=== PATIENT | female | born 1930 | race African-American/Black ===

== ENCOUNTER 2016-06-07 16:44 | Observation (INO) | payer MEDICARE, OTHER ==
[2016-06-07 17:21] LABS: ABSOLUTE BASOPHILS # (AUTO) 0.1 10^3/uL (0.0-0.2); ABSOLUTE EOSINOPHILS # (AUTO) 0.2 10^3/uL (0.0-0.6); ABSOLUTE LYMPHOCYTES (AUTO) 2.6 10^3/uL (0.5-4.7); ABSOLUTE MONOCYTES (AUTO) 0.7 10^3/uL (0.1-1.4); ABSOLUTE NEUT (AUTO) 4.2 10^3/uL (1.7-8.2); BASOPHILS % (AUTO) 0.9 % (0-2); EOSINOPHILS % (AUTO) 2.6 % (0-6); HEMATOCRIT 34.6 % (36.0-47.0); HEMOGLOBIN 11.7 g/dL (12.0-15.5); HGB HCT DIFFERENCE 0.5; LYMPHOCYTES % (AUTO) 33.2 % (13-45); MEAN CORPUSCULAR HEMOGLOBIN 29.8 pg (27.0-33.4); MEAN CORPUSCULAR HGB CONC 33.9 g/dL (32.0-36.0); MEAN CORPUSCULAR VOLUME 88 fl (80-97); MONOCYTES % (AUTO) 8.5 % (3-13); RED BLOOD COUNT 3.93 10^6/uL (3.72-5.28); RED CELL DISTRIBUTION WIDTH 14.6 % (11.5-14.0); SEGMENTED NEUTROPHILS % (AUTO) 54.8 % (42-78); WHITE BLOOD COUNT 7.7 10^3/uL (4.0-10.5)
--- NOTE | 2016-06-07 17:38 | ER Document Report ---
ED Cardiac - General Chief Complaint: Chest Pain Stated Complaint: BACK PAIN Mode of Arrival: Medic Information source: Patient, Emergency Med Personnel Cannot obtain history due to: Dementia - MILD TRAVEL OUTSIDE OF THE [place] IN LAST 30 DAYS: No - HPI Patient complains to provider of: Chest pain Use of: denies: Alcohol, Amphetamines, Bath salts, Caffeine, Cocaine, Decongestants Was the onset of pain: Sudden When did pain begin: YESTERDAY ?? Is the pain a: New problem Chest pain location: Substernal Quality of pain: Other - UNABLE TO DESCRIBE Chest pain radiation location: None Severity now: None Severity at worst: Mild Chest pain precipitating factors: DOESN'T REMEMBER CIRCUMSTANCES @ TIME OF ONSET Cardiac risk factors: Hypertension. denies: Diabetes, Smoker, + Family history , Dyslipidemia, Hx CHF, Hx [place] Positive cardiac history: No Associated symptoms: None Exacerbated by: Denies Relieved by: Nothing Similar symptoms previously: No Recently seen / treated by doctor: No - Related Data Allergies/Adverse Reactions: aspirin Allergy (Verified 06/07/16 17:17) Penicillins Allergy (Verified 06/07/16 17:17) Past Medical History - General Information source: Patient - Social History Smoking Status: Never Smoker Chew tobacco use (# tins/day): No Frequency of alcohol use: None Drug Abuse: None Lives with: Retirement - [facility]. [facility] Family History: None Patient has suicidal ideation: No Patient has homicidal ideation: No - Past Medical History Cardiac Medical History: Reports: Hx Hypertension Pulmonary Medical History: Reports: None EENT Medical History: Reports: None Neurological Medical History: Reports: None Endocrine Medical History: Reports: Hx Diabetes Mellitus Type 2 Renal/ Medical History: Reports: None Malignancy Medical History: Reports: None GI Medical History: Reports: None Musculoskeltal Medical History: Reports None Psychiatric Medical History: Reports: Hx Dementia Surgical Hx: Negative Review of Systems - Review of Systems Constitutional: No symptoms reported EENT: No symptoms reported Cardiovascular: See HPI Respiratory: No symptoms reported Gastrointestinal: No symptoms reported Genitourinary: No symptoms reported Female Genitourinary: Post menopausal Skin: No symptoms reported Neurological/Psychological: No symptoms reported Physical Exam - Vital signs Vitals: Pulse Ox 99 06/07/16 17:15 - General General appearance: Appears well, Alert In distress: None - HEENT Head: Normocephalic Eyes: Normal Conjunctiva: Normal Ears: Normal Nasal: Normal Mouth/Lips: Normal Mucous membranes: Normal Pharynx: Normal - Respiratory Respiratory status: No respiratory distress Chest status: Nontender Breath sounds: Normal - Cardiovascular Rhythm: Regular Heart sounds: Normal auscultation Murmur: No - Abdominal Inspection: Normal Distension: No distension Bowel sounds: Normal - Back Back: Normal - Extremities General upper extremity: Normal inspection General lower extremity: Normal inspection. No: Tender, Edema - Neurological Neuro grossly intact: Yes Cognition: Normal Orientation: AAOx4 - Psychological Associated symptoms: Normal affect, Normal mood - Skin Skin Temperature: Warm Skin Moisture: Dry Skin Color: Normal Skin Turgor: Elastic Course - Re-evaluation Re-evalutation: 06/07/16 19:36 Patient denies any further chest pain. Does complain of a mild headache. Results of evaluation to date discussed with patient. Disposition will be decided after results of repeat EKG and troponin are reported. - Vital Signs Vital signs: Temp Pulse Resp BP Pulse Ox 15 99 06/07/16 18:08 06/07/16 18:08 - Laboratory Result Diagrams: 06/07/16 17:15 06/07/16 17:15 Laboratory results interpreted by me: 06/07/16 06/07/16 17:15 17:15 Hgb 11.7 L Hct 34.6 L RDW 14.6 H Est GFR (Non-Af Amer) 53 L Glucose 160 H Calcium 10.4 H - Diagnostic Test Radiology reviewed: Image reviewed, Reports reviewed - EKG Interpretation by Nm EKG shows normal: Sinus rhythm, [place], Intervals, QRS Complexes, ST-T Waves Rate: Normal Rhythm: NSR P Waves: LAE - Consults DR. SRINIVASAN Time consulted: 20:45 Consulted provider: will come to ER Discharge - Discharge Clinical Impression: Essential hypertension Chest pain Qualifiers: Chest pain type: unspecified Qualified Code(s): R07.9 - Chest pain, unspecified Condition: Good Disposition: ADMITTED OBSERVATION Admitting Provider: Hospitalist Unit Admitted: Telemetry
[2016-06-07 17:46] LABS: ALANINE AMINOTRANSFERASE 30 U/L (9-52); ALBUMIN 4.4 g/dL (3.5-5.0); ALKALINE PHOSPHATASE 80 U/L (38-126); ANION GAP 11 (5-19); ASPARTATE AMINO TRANSFERASE 34 U/L (14-36); BILIRUBIN,DIRECT 0.4 mg/dL (0.0-0.4); BILIRUBIN,TOTAL 0.7 mg/dL (0.2-1.3); BLOOD UREA NITROGEN 20 mg/dL (7-20); CALCIUM 10.4 mg/dL (8.4-10.2); CARBON DIOXIDE 29 mmol/L (22-30); CHLORIDE 100 mmol/L (98-107); CREATINE KINASE 105 U/L (30-135); GLUCOSE 160 mg/dL (75-110); POTASSIUM 4.6 mmol/L (3.6-5.0); SODIUM 140.2 mmol/L (137-145); TOTAL PROTEIN 8.1 g/dL (6.3-8.2)
[2016-06-07 17:58] LABS: CREATINE KINASE MB 1.14 ng/mL (<4.55)
[2016-06-07 17:59] LABS: TROPONIN I < 0.012 ng/mL
[2016-06-07] MEDS ORDERED: ACETAMINOPHEN 325 MG TABLET PO ONE (19:37)
--- NOTE | 2016-06-07 19:38 | EKG REPORT ---
SEVERITY:- BORDERLINE ECG - SINUS RHYTHM PROBABLE LEFT ATRIAL ABNORMALITY : Confirmed by: Lizbeth Cage MD 07-Jun-2016 19:37:27
[2016-06-07] MEDS ORDERED: NITROGLYCERIN 2% OINTMENT 1 GM PACKET TP ONE (20:13)
[2016-06-07] MEDS ORDERED: DEXTROSE 40% GEL 15 GM TUBE PO PRN ×2 (23:21)
[2016-06-07] MEDS ORDERED: GLUCAGON,HUMAN RECOMB 1 MG INJ IM PRN (23:21)
[2016-06-07] MEDS ORDERED: DEXTROSE 50%-WATER 25 GM/50 ML DISP.SYRIN IV PRN ×2 (23:21)
[2016-06-07] MEDS ORDERED: ENALAPRILAT DIHYDRATE INJ/PF 1.25 MG/1 ML SDV IV PRN (23:23)
[2016-06-07] MEDS ORDERED: ACETAMINOPHEN 325 MG TABLET PO PRN (23:24)
--- NOTE | 2016-06-07 23:44 | PDOC H&P ---
History of Present Illness Admission Date/PCP: 06/07/16 20:[address] Stevenson [facility] Patient complains of: chest pain History of Present Illness: AIDEN CULP is a 85 year old -[place] female with underlying hypertension, type II diabetes mellitus, and dementia, who presents to the emergency room for evaluation of above complaint. Patient has been discussed with emergency room physician who evaluated the patient. Patient herself is somewhat disoriented, thinking she was back at [facility], and uncertain of the year. When asked why she was in the hospital, she stated "my side was hurting." Denies any pain at the present time. Really could not describe the pain, or any exacerbating factors. Please see notes by emergency room physician also, which are reviewed. No associated nausea vomiting, fever or chills, diarrhea or dysuria. Negative cardiac history other than hypertension, with no previous myocardial infarction, congestive heart failure, pulmonary embolus, or DVT.. Laboratory results are listed in [employer] and are reviewed. No old labs available for comparison. X-ray summary results are listed below, with full report(s) reviewed. . EKG's reviewed. No old EKG available for comparison. Social history/personal habits: She is a . Currently resides at [facility]. 3 Children; one ; could not remember why her child . No use of tobacco alcohol or illicit drugs. Allergies/adverse reactions are listed in [employer] and are reviewed. Home medications Home medications initially autopopulated into [employer] may not accurately reflect patient's true medications, dosages, and/or frequencies. 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 Unfortunately, patient uncertain of medications/dosages/frequencies. REVIEW OF SYSTEMS: Constitutional: No fever or chills. Eyes: Wears glasses. ENT: No swallowing problems or complaints. No hearing problems or complaints. Pulmonary: No current complaints. Cardiovascular: See history and present illness. Gastrointestinal: No current complaints, including nausea or vomiting. Skin: No current complaints, including rashes. Hematologic: Easy bruising. Neurologic: No current complaints, including numbness or tingling. Musculoskeletal: No current complaints, including painful joints. Psychiatric: No current complaints, including anxiety or depression. Endocrine: No current complaints, including polyuria. Genitourinary: No current complaints, including dysuria. PHYSICAL EXAMINATION: Neither height nor weight are recorded on the chart. Blood pressure 161/84. Pulse 76 and regular. 99% saturation on room air. Respirations are 15 and unlabored. Temperature not recorded on the chart; skin feels normothermic. Skin is warm and dry. No grossly obvious evidence of rash in areas of skin examined. No subcutaneous nodules palpated. ENT: Hearing grossly normal to normal conversation. Tongue midline on protrusion pink and slightly moist. Eyes: No scleral icterus. Pupils reactive to light; right pupil 4 mm; Left pupil 3 mm. [place] conjunctivae. Neck is supple and nontender to gentle active range of motion and palpation. Midline trachea. No palpable thyroid nodule mass enlargement or tenderness. Lymphatic: No palpable cervical or clavicular nodes. Neck and lymphatic exams limited by patient body habitus. Psychiatric: Disoriented. See history and present illness. Lungs: Auscultation reveals clear and equal breath sounds bilaterally. No use of accessory respiratory muscles. Cardiovascular: Heart regular rate and rhythm, without gallop murmur or rub. No carotid or abdominal aortic bruits. No ankle or pedal edema. palpable dorsalis pedis pulses. Abdomen: soft, slightly distended nontender with positive bowel sounds. Unable to adequately evaluate abdomen for masses or organomegaly due to distention. Compression of either her upper abdomen nor sternum reproduces her previously noted chest pain. Extremities: Feet are warm and dry. No calf tenderness to compression. No grossly obvious visual evidence of calf swelling. Gentle manipulation of lower extremities fails to reveal any obvious evidence of injury or instability to knees hips or ankles. Neurologic: Moves upper extremities grossly normally. Patellar reflexes absent. Absent Babinski. Light touch is intact at feet. Dorsiflexion and plantarflexion of feet 5 / 5 and symmetric. Past Medical History Cardiac Medical History: Reports: Hypertension Denies: Congestive Heart Failure, DVT, Myocardial Infarction, Hyperlipidema, Pulmonary Embolism Pulmonary Medical History: Reports: None Denies: Asthma, Chronic Obstructive Pulmonary Disease (COPD) EENT Medical History: Reports: Eyes - Wears glasses Denies: Ears, Throat Neurological Medical History: Denies: Hemorrhagic CVA, Ischemic CVA, Seizures Endocrine Medical History: Reports: Diabetes Mellitus Type 2 Denies: Diabetes Mellitus Type 1, Hyperthyroidism, Hypothyroidism Renal/ Medical History: Reports: None Malignancy Medical History: Reports: None GI Medical History: Denies: Cirrhosis, Gastroesophageal Reflux Disease, Hepatitis, Peptic Ulcer Disease Musculoskeltal Medical History: Denies: Arthritis Skin Medical History: Reports: None Psychiatric Medical History: Reports: Dementia Denies: Alcohol Dependency, Depression, General Anxiety Disorder, Substance Abuse, Tobacco Dependency Hematology: Reports: Other - Easy bruising Infectious Medical History: Denies: Hepatitis B, Hepatitis C Past Surgical History Past Surgical History: Reports: None Social History Information Source: Patient, Emergency Med Personnel, [facility] Records Lives with: Detention - [facility]. [facility] Smoking Status: Never Smoker Frequency of Alcohol Use: None Drugs: None - Advance Directive Resuscitation Status: Full Code Surrogate healthcare decision maker:: Her son Family History Family History: None Parental Family History Reviewed: Yes Children Family History Reviewed: Yes Sibling(s) Family History Reviewed.: Yes Medication/Allergy Home Medications: Albiglutide [Tanzeum] 1 applic SUBCUT QAM 06/07/16 Calcium Citrate/Vitamin D3 [[place] Calcium-Vit D 200-250 Tablet] 2 tab PO QAM Esomeprazole Magnesium [Nexium] 1 tab PO DAILY 06/07/16 Insulin Glargine,Hum.rec.anlog [Lantus Insulin 100 Unit/mL] 15 unit SUBCUT QHS 06/07/16 Loratadine [Loratadine] 1 tab PO QAM 06/07/16 Meclizine HCl 12.5 mg PO TID 06/07/16 Melatonin 3 mg PO QHS 06/07/16 Multivitamin [Multivitamins] 1 tab PO DAILY 06/07/16 Simethicone 1 tab PO TID 06/07/16 Telmisartan [Micardis 20 mg Tablet] 1 tab PO QAM 06/07/16 Donepezil HCl [Aricept 5 mg Tablet] 2 tab PO QHS 06/08/16 Allergies/Adverse Reactions: aspirin Allergy (Verified 06/07/16 17:17) Penicillins Allergy (Verified 06/07/16 17:17) Physical Exam Vital Signs: Temp Pulse Resp BP Pulse Ox 19 143/115 H 99 06/07/16 22:17 06/07/16 22:17 06/07/16 22:17 Results Impressions: Chest X-Ray 06/07/16 16:46 IMPRESSION: NO ACUTE RADIOGRAPHIC FINDING IN THE CHEST. Assessment & Plan - Diagnosis (1) Anemia Qualifiers: Anemia type: unspecified type Qualified Code(s): D64.9 - Anemia, unspecified Is this a current diagnosis for this admission?: YesPlan: No old labs available for comparison. Follow-up CBC with differential. No need for transfusion at present time. (2) Chest pain Qualifiers: Chest pain type: unspecified Qualified Code(s): R07.9 - Chest pain, unspecified Is this a current diagnosis for this admission?: YesPlan: Patient will be placed in observation bed under chest pain protocol. Patient understands to notify staff should chest pain recur. Serial troponin's . Repeat EKG. lipid panel. I have strongly encouraged patient not to get out of bed without notifying staff , to avoid a fall with injury. Knee high SCDs for DVT prophylaxis. Along with subcutaneous Lovenox . Impression and plans were discussed with patient, who concurs. Time spent in evaluation and management of patient: 59 minutes. (3) Dementia Qualifiers: Dementia type: unspecified type Dementia behavioral disturbance: without behavioral disturbance Qualified Code(s): F03.90 - Unspecified dementia without behavioral disturbance Is this a current diagnosis for this admission?: Yes (4) Diabetes mellitus type 2 in nonobese Is this a current diagnosis for this admission?: YesPlan: Diabetic cardiac diet. Accu-Cheks with appropriate sliding scale coverage.Resume home medications as appropriate once these have been determined and reviewed. (5) Essential hypertension Is this a current diagnosis for this admission?: YesPlan: Resume home medications as appropriate once these have been determined and reviewed.
[2016-06-08] MEDS: INSULIN LISPRO 100 UNIT/ML 3 ML VIAL SUBCUT PRN ×2 (06:00→06:07)
--- NOTE | 2016-06-08 08:31 | EKG REPORT ---
SEVERITY:- BORDERLINE ECG - SINUS RHYTHM PROBABLE LEFT ATRIAL ABNORMALITY : Confirmed by: Lizbeth Cage MD 08-Jun-2016 08:31:14
--- NOTE | 2016-06-08 08:31 | EKG REPORT ---
SEVERITY:- BORDERLINE ECG - SINUS RHYTHM BORDERLINE T ABNORMALITIES, INFERIOR LEADS : Confirmed by: Lizbeth Cage MD 08-Jun-2016 08:31:10
[2016-06-08] MEDS ORDERED: NORMAL SALINE 1000 ML 1,000 ML IV PRN (08:35)
[2016-06-08 09:20] LABS: ABSOLUTE BASOPHILS # (AUTO) 0.1 10^3/uL (0.0-0.2); ABSOLUTE EOSINOPHILS # (AUTO) 0.1 10^3/uL (0.0-0.6); ABSOLUTE MONOCYTES (AUTO) 0.7 10^3/uL (0.1-1.4); ABSOLUTE NEUT (AUTO) 8.4 10^3/uL (1.7-8.2); BASOPHILS % (AUTO) 0.6 % (0-2); EOSINOPHILS % (AUTO) 1.3 % (0-6); HEMATOCRIT 34.8 % (36.0-47.0); HEMOGLOBIN 11.6 g/dL (12.0-15.5); LYMPHOCYTES % (AUTO) 17.9 % (13-45); MEAN CORPUSCULAR HEMOGLOBIN 29.2 pg (27.0-33.4); MEAN CORPUSCULAR HGB CONC 33.3 g/dL (32.0-36.0); MEAN CORPUSCULAR VOLUME 88 fl (80-97); MONOCYTES % (AUTO) 6.5 % (3-13); RED BLOOD COUNT 3.97 10^6/uL (3.72-5.28); RED CELL DISTRIBUTION WIDTH 14.8 % (11.5-14.0); SEGMENTED NEUTROPHILS % (AUTO) 73.7 % (42-78); WHITE BLOOD COUNT 11.4 10^3/uL (4.0-10.5)
[2016-06-08 09:38] LABS: Direct HDL 84 mg/dL (>40); TRIGLYCERIDES 85 mg/dL (<150)
[2016-06-08 09:48] LABS: DIRECT LDL 127 mg/dL (<100)
[2016-06-08] MEDS: ENOXAPARIN SODIUM INJ 40 MG/0.4 ML DISP.SYRIN SUBCUT SCH (10:00)
[2016-06-08] MEDS ORDERED: VALSARTAN 80 MG TABLET PO ONE (11:30)
[2016-06-08] MEDS ORDERED: METOPROLOL TARTRATE 25 MG TABLET PO ONE (11:30)
[2016-06-08] MEDS ORDERED: CLOPIDOGREL BISULFATE 75 MG TABLET PO ONE (11:30)
[2016-06-08] MEDS ORDERED: CARBOXYMETHYLCELLULOSE SODIUM OU PRN (15:59)
[2016-06-08] MEDS ORDERED: ALBUTEROL SULFATE HFA (90 MCG/PUFF) 8 GM MDI (1 MDI/ER DISP) IH PRN (15:59)
[2016-06-08] MEDS ORDERED: FLUTICASONE NASAL SPRAY 50 MCG/SPRY 120 SPRAY/16 GM NASL PRN (15:59)
[2016-06-08] MEDS ORDERED: SIMETHICONE 80 MG TAB.CHEW PO PRN (15:59)
--- NOTE | 2016-06-08 15:59 | PDOC PROGRESS REPORT ---
Subjective Progress Note for:: 06/08/16 Subjective:: Patient slightly restless. Wanders around. Reportedly the patient pulled lines and intravenous fluids out. No reported respiratory distress, temperature spikes, nausea vomiting or diaphoresis. Patient denies having any chest pain, nor states that she came with chest pain. She however has dementia. Physical Exam Vital Signs: Temp Pulse Resp BP Pulse Ox 97.5 F 71 18 154/69 H 98 06/08/16 14:20 06/08/16 15:31 06/08/16 15:31 06/08/16 15:31 06/08/16 15:31 Intake & Output 06/07/16 06/08/16 06/09/16 06:59 06:59 06:59 Weight 54.431 kg General appearance: PRESENT: no acute distress Head exam: PRESENT: normocephalic Eye exam: PRESENT: EOMI Mouth exam: PRESENT: moist, neck supple Neck exam: ABSENT: JVD Respiratory exam: PRESENT: clear to auscultation phillip. ABSENT: rhonchi, wheezes Cardiovascular exam: PRESENT: RRR. ABSENT: gallop GI/Abdominal exam: PRESENT: normal bowel sounds, soft. ABSENT: distended, tenderness Extremities exam: ABSENT: pedal edema Neurological exam: PRESENT: alert, awake Psychiatric exam: ABSENT: agitated Focused psych exam: PRESENT: restlessness - Slightly Skin exam: PRESENT: dry, warm. ABSENT: cyanosis Results Laboratory Results: 06/08/16 08:46 06/08/16 06/08/16 06/08/16 08:46 08:46 12:49 WBC 11.4 H RBC 3.97 Hgb 11.6 L Hct 34.8 L MCV 88 MCH 29.2 MCHC 33.3 RDW 14.8 H Plt Count 213 Seg Neutrophils % 73.7 Lymphocytes % 17.9 Monocytes % 6.5 Eosinophils % 1.3 Basophils % 0.6 Absolute Neutrophils 8.4 H Absolute Lymphocytes 2.0 Absolute Monocytes 0.7 Absolute Eosinophils 0.1 Absolute Basophils 0.1 Calcium 10.7 H Triglycerides 85 Cholesterol 259.80 H LDL Cholesterol Direct 127 H VLDL Cholesterol 17.0 HDL Cholesterol 84 06/08/16 06/08/16 02:33 08:46 Troponin I < 0.012 < 0.012 Impressions: Chest X-Ray 06/07/16 16:46 IMPRESSION: NO ACUTE RADIOGRAPHIC FINDING IN THE CHEST. Assessment & Plan - Diagnosis (1) Chest pain Qualifiers: Chest pain type: unspecified Qualified Code(s): R07.9 - Chest pain, unspecified Is this a current diagnosis for this admission?: Yes (2) Dementia Qualifiers: Dementia type: unspecified type Dementia behavioral disturbance: without behavioral disturbance Qualified Code(s): F03.90 - Unspecified dementia without behavioral disturbance Is this a current diagnosis for this admission?: Yes (3) Diabetes mellitus type 2 in nonobese Is this a current diagnosis for this admission?: Yes (4) Hypercalcemia Is this a current diagnosis for this admission?: Yes (5) Essential hypertension Is this a current diagnosis for this admission?: Yes (6) GERD (gastroesophageal reflux disease) Qualifiers: Esophagitis presence: without esophagitis Qualified Code(s): K21.9 - Gastro-esophageal reflux disease without esophagitis Is this a current diagnosis for this admission?: Yes - Time Time Spent with patient: 25-34 minutes - Plan Summary Plan Summary: We will check a urinalysis. Begin hydration for hypercalcemia. Recheck calcium in the morning. Begin antiplatelet therapy with Plavix. Resume home medications and antihypertensive medications. We'll put one-to-one sitter.
[2016-06-08] MEDS ORDERED: CARBOXYMETHYLCELLULOSE SOD 0.5% 0.4 ML DROPERETTE OU PRN (16:13)
[2016-06-08] MEDS ORDERED: ALBUTEROL SULFATE HFA (90 MCG/PUFF) 200 PUFF/8.5 GM MDI IH PRN (16:25)
[2016-06-08 21:14] LABS: APPEARANCE,URINE CLEAR; BILIRUBIN,URINE NEGATIVE (NEGATIVE); GLUCOSE, URINE 150 mg/dL (NEGATIVE); KETONES,URINE NEGATIVE (NEGATIVE); LEUKOCYTE ESTERASE,URINE NEGATIVE (NEGATIVE); NITRITE,URINE NEGATIVE (NEGATIVE); PROTEIN,URINE NEGATIVE (NEGATIVE); URINE SPECIFIC GRAVITY 1.017; UROBILINOGEN,URINE NEGATIVE mg/dL (<2.0)
[2016-06-08] MEDS: METOPROLOL TARTRATE 25 MG TABLET PO SCH (21:43)
[2016-06-08] MEDS: LANSOPRAZOLE 30 MG TAB.RAP.DR PO SCH (21:43)
[2016-06-08] MEDS ORDERED: DONEPEZIL HCL 5 MG TABLET PO SCH ×2 (22:00)
[2016-06-08] MEDS ORDERED: INSULIN GLARGINE,HUM.REC.ANLOG 300 UNIT/3 ML INSULN.PEN SUBCUT SCH (22:00)
[2016-06-08] MEDS ORDERED: (PENDING PHARMACY ID) (Melatonin/Pyridoxine [Melatonin 3 Mg Tablet] 1 EACH) PO SCH (22:00)
[2016-06-09] MEDS: LANSOPRAZOLE 30 MG TAB.RAP.DR PO SCH (05:24)
[2016-06-09 06:32] LABS: ANION GAP 12 (5-19); BLOOD UREA NITROGEN 24 mg/dL (7-20); CALCIUM 9.9 mg/dL (8.4-10.2); CARBON DIOXIDE 25 mmol/L (22-30); CHLORIDE 101 mmol/L (98-107); CREATININE RESULT 1.02 mg/dL (0.52-1.25); GLUCOSE 162 mg/dL (75-110); POTASSIUM 4.2 mmol/L (3.6-5.0); SODIUM 137.8 mmol/L (137-145)
[2016-06-09] MEDS: INSULIN LISPRO 100 UNIT/ML 3 ML VIAL SUBCUT PRN ×2 (09:25→14:07)
[2016-06-09] MEDS: ENOXAPARIN SODIUM INJ 40 MG/0.4 ML DISP.SYRIN SUBCUT SCH (09:25)
[2016-06-09] MEDS: METOPROLOL TARTRATE 25 MG TABLET PO SCH (09:25)
[2016-06-09] MEDS ORDERED: LOSARTAN POTASSIUM 25 MG TABLET PO SCH ×2 (10:00)
[2016-06-09] MEDS ORDERED: CLOPIDOGREL BISULFATE 75 MG TABLET PO SCH (10:00)
[2016-06-09] MEDS ORDERED: VALSARTAN 80 MG TABLET PO SCH (10:00)
[2016-06-09] MEDS ORDERED: (PENDING PHARMACY ID) (Telmisartan [Micardis 20 Mg Tablet] 20 MG) PO SCH (10:00)
--- NOTE | 2016-06-09 11:12 | PDOC DISCHARGE SUMMARY ---
General - Admit/Disc Date/PCP Admission Date/Primary Care Provider: 06/07/16 23:23 Discharge Date: 06/09/16 - Discharge Diagnosis (1) Chest pain Is this a current diagnosis for this admission?: Yes (2) Dementia Is this a current diagnosis for this admission?: Yes (3) Diabetes mellitus type 2 in nonobese Is this a current diagnosis for this admission?: Yes (4) Hypercalcemia Is this a current diagnosis for this admission?: Yes (5) Dehydration Is this a current diagnosis for this admission?: Yes (6) Essential hypertension Is this a current diagnosis for this admission?: Yes (7) GERD (gastroesophageal reflux disease) Is this a current diagnosis for this admission?: Yes - Additional Information Resuscitation Status: Full Code Discharge Diet: Cardiac - low-fat low-salt Discharge Activity: Activity As Tolerated, Balance Activity w/Rest Home Medications: Acetaminophen [Tylenol 325 mg Tablet] 650 mg PO Q6HP PRN 06/08/16 Albiglutide [Tanzeum] 30 mg SQ FR@1000 06/08/16 Albuterol Sulfate [Ventolin Hfa] 2 puff IH Q4HP PRN 06/08/16 Carboxymethylcellulose Sodium [Refresh Tears] 1 drp OU Q4HP PRN 06/08/16 Donepezil HCl [Aricept] 10 mg PO QHS 06/08/16 Esomeprazole Magnesium [Nexium] 20 mg PO DAILY@0630 06/08/16 Fluticasone Propionate [Flonase Nasal [place] 50 Mcg/[place] 16 gm] 1 spray NASL DAILYP PRN 06/08/16 Insulin Glargine,Hum.rec.anlog [Lantus Solostar] 15 unit SQ QHS 06/08/16 Loratadine [Claritin 10 mg Tablet] 10 mg PO DAILY 06/08/16 Meclizine HCl [Antivert 12.5 mg Tablet] 12.5 mg PO TIDP PRN MDD 3 06/08/16 Melatonin/Pyridoxine [Melatonin 3 mg Tablet] 1 each PO QHS 06/08/16 Multivitamin [Tab-A-Dao] 1 each PO DAILY 06/08/16 Mv-Mn/FA/Vit K/Lycop/Lut/Zeaxa [Ocuvite Eye + Multi Tablet] 1 each PO DAILY Nitroglycerin [Nitrostat 0.4 mg (1/150 Gr) Tabs 25/Bottle] 1 tab SL Q5MP PRN Polysorbate 80/Glycerin [Refresh Dry Eye Therapy Drops] 1 drop BTH_EYE Q4HP PRN 06/08/16 Simethicone [Mylicon 80 mg Chewable Tablet] 80 mg PO TIDP PRN 06/08/16 Telmisartan [Micardis 20 mg Tablet] 20 mg PO DAILY 06/08/16 Clopidogrel Bisulfate [Plavix 75 mg Tablet] 75 mg PO DAILY tablet 06/09/16 Metoprolol Tartrate [Lopressor 25 mg Tablet] 25 mg PO Q12 tablet 06/09/16 History of Present Illness Patient complains of: Chest pain History of Present Illness: AIDEN CULP is a 85 year old female, with history of dementia, hypertension and diabetes mellitus, presents to the hospital because of chest pain. However information is unclear, on the history, reportedly patient stated my side was hurting. Patient is unable to elaborate the discomfort as reported. Patient was referred for observation for chest pain rule out [place]. For details please refer to history and physical examination performed by the admitting physician. Hospital Course Hospital Course: The patient was admitted to observation. Patient was begun on antiplatelet therapy as well as beta laura. Antihypertensive medications were continued. Serial cardiac enzymes were obtained and they were negative for myocardial infarction. The patient was noted with mild hypercalcemia probably from dehydration and with normal saline infusion hypercalcemia normalized. Her supplemental calcium was discontinued . The patient improved. Her discomfort resolved. Patient however exhibit some restlessness, pulling out her intravenous lines and monitor. Patient unlikely to cooperate with stress test, therefore will be treated medically as stated with beta laura and antiplatelet therapy with Plavix. The rest of the hospital stay is unremarkable. Physical Exam Vital Signs: Temp Pulse Resp BP Pulse Ox 98.0 F 59 L 14 132/44 H 100 06/09/16 07:00 06/09/16 07:00 06/09/16 07:00 06/09/16 07:00 06/09/16 07:00 Intake & Output 06/08/16 06/09/16 06/10/16 06:59 06:59 06:59 Intake Total 175 Output Total 90 Balance 85 Weight 54.431 kg General appearance: PRESENT: no acute distress Head exam: PRESENT: normocephalic Eye exam: PRESENT: EOMI, PERRLA Mouth exam: PRESENT: moist, neck supple Neck exam: ABSENT: JVD Respiratory exam: PRESENT: clear to auscultation phillip, unlabored Cardiovascular exam: PRESENT: RRR. ABSENT: gallop GI/Abdominal exam: PRESENT: soft. ABSENT: distended, guarding, tenderness Extremities exam: ABSENT: pedal edema Neurological exam: PRESENT: alert, awake Skin exam: PRESENT: dry, warm. ABSENT: cyanosis Results Laboratory Results: 06/08/16 08:46 06/09/16 05:08 06/08/16 06/08/16 06/09/16 12:49 20:45 05:08 Sodium 137.8 Potassium 4.2 Chloride 101 Carbon Dioxide 25 Anion Gap 12 BUN 24 H Creatinine 1.02 Est GFR ( Amer) > 60 Est GFR (Non-Af Amer) 51 L Glucose 162 H Calcium 10.7 H 9.9 Urine Color YELLOW Urine Appearance CLEAR Urine pH 6.0 Ur Specific [place] 1.017 Urine Protein NEGATIVE Urine Glucose (UA) 150 H Urine Ketones NEGATIVE Urine Blood NEGATIVE Urine Nitrite NEGATIVE Ur Leukocyte Esterase NEGATIVE Urine WBC (Auto) 0 Urine RBC (Auto) 0 06/08/16 06/08/16 02:33 08:46 Troponin I < 0.012 < 0.012 Impressions: Chest X-Ray 06/07/16 16:46 IMPRESSION: NO ACUTE RADIOGRAPHIC FINDING IN THE CHEST. Qualifiers PATEINT BEING DISCHARGED WITH ANY OF THE FOLLOWING DIAGNOSIS?: No Plan Discharge Plan: Follow-up with primary care physician in one week. Time Spent: Less than 30 Minutes
[2016-06-09 12:04] VITALS: BP 115/51
[2016-06-10] MEDS ORDERED: (PENDING PHARMACY ID) (Albiglutide [Tanzeum] 30 MG) SQ SCH (10:00)
== END 2016-06-09 16:16 | disposition home health service (06) ==
LOC: ER 16:44 → UNDOADMOB 20:51 → EH 20:51 → 4S 06-08 17:33
PROVIDERS: ADMIT Family Medicine; ATTEND Family Medicine
DX: R07.89 Other chest pain (principal); F03.90 Unspecified dementia, unspecified severity, without behavioral disturbance, psychotic disturbance, mood disturbance, and anxiety; E11.9 Type 2 diabetes mellitus without complications; E83.52 Hypercalcemia; E86.0 Dehydration; I10 Essential (primary) hypertension; K21.9 Gastro-esophageal reflux disease without esophagitis; R45.1 Restlessness and agitation; D64.9 Anemia, unspecified; R51 Headache; Z79.4 Long term (current) use of insulin; Z79.899 Other long term (current) drug therapy
CPT/HCPCS: 93005 ×2; 99285; 36415 ×3; 82553; 82962 ×2; 82310; 82550; 85025 ×2; 80048; 80053; 81001; 84484 ×2; 80061; 71010; 93010 ×2; G0378 ×4; A9270 ×15; J1650 ×2; J3490 ×2; J7030; J1815

== ENCOUNTER 2017-08-20 08:35 | Emergency (ER) | payer MEDICARE, OTHER ==
--- NOTE | 2017-08-20 09:41 | RADIOLOGY REPORT (SQ) ---
EXAM DESCRIPTION: CHEST 2 VIEWS COMPLETED DATE/TIME: 08/20/2017 9:32 am REASON FOR STUDY: ams COMPARISON: 09/05/2008 EXAM PARAMETERS: NUMBER OF VIEWS: two views TECHNIQUE: Digital Frontal and Lateral radiographic views of the chest acquired. RADIATION DOSE: NA LIMITATIONS: Digital noise on the films FINDINGS: LUNGS AND PLEURA: No opacities, masses or pneumothorax. No pleural effusion. MEDIASTINUM AND HILAR STRUCTURES: No masses or contour abnormalities. HEART AND VASCULAR STRUCTURES: Mild cardiomegaly BONES: No acute findings. HARDWARE: None in the chest. OTHER: No other significant finding. IMPRESSION: Cardiomegaly. No acute changes TECHNICAL DOCUMENTATION: JOB ID: [id number] [employer]- All Rights Reserved Reading location - IP/workstation name: [email or web address]
--- NOTE | 2017-08-20 10:05 | RADIOLOGY REPORT (SQ) ---
EXAM DESCRIPTION: CT HEAD WITHOUT COMPLETED DATE/TIME: 08/20/2017 9:42 am REASON FOR STUDY: ams COMPARISON: None. TECHNIQUE: Axial images acquired through the brain without intravenous contrast. Images reviewed wi th bone, brain and subdural windows. Additional sagittal and coronal reconstructions were generated. Images stored on PACS. All CT scanners at this facility use dose modulation, iterative reconstruction, and/or weight based d osing when appropriate to reduce radiation dose to as low as reasonably achievable (ALARA). [facility]: Dose Right [facility]: CareDose [facility]: Dose Right [facility]: Teradose 4D [facility]: [employer] RADIATION DOSE: CT Rad equipment meets quality standard of care and radiation dose reduction techniq ues were employed. CTDIvol: 53.2 mGy. DLP: 937 mGy-cm.mGy. LIMITATIONS: None. FINDINGS: VENTRICLES: Age-appropriate CEREBRUM: No masses. No hemorrhage. No midline shift. Areas of low density in the white matter mos t likely due to chronic micro-vascular ischemic change. No evidence for acute infarction. CEREBELLUM: No masses. No hemorrhage. No alteration of density. No evidence for acute infarction. EXTRAAXIAL SPACES: No acute hemorrhage. No fluid collections. No masses. ORBITS AND GLOBE: No intra- or extraconal masses. Normal contour of globe without masses. CALVARIUM: No fracture. PARANASAL SINUSES: No fluid or mucosal thickening. SOFT TISSUES: No mass or hematoma. OTHER: No other significant finding. IMPRESSION: CHRONIC CHANGES OF MICROVASCULAR ISCHEMIA. NO ACUTE PROCESS. EVIDENCE OF ACUTE STROKE: NO. TECHNICAL DOCUMENTATION: JOB ID: [id number] Quality ID # [id number]: Final reports with documentation of one or more dose reduction techniques (e.g., Au tomated exposure control, adjustment of the mA and/or kV according to patient size, use of iterative reconstruction technique) 2010 [employer]- All Rights Reserved Reading location - IP/workstation name: [email or web address]
[2017-08-20 10:08] LABS: ABSOLUTE BASOPHILS # (AUTO) 0.2 10^3/uL (0.0-0.2); ABSOLUTE EOSINOPHILS # (AUTO) 0.1 10^3/uL (0.0-0.6); ABSOLUTE LYMPHOCYTES (AUTO) 1.8 10^3/uL (0.5-4.7); ABSOLUTE MONOCYTES (AUTO) 0.5 10^3/uL (0.1-1.4); ABSOLUTE NEUT (AUTO) 5.1 10^3/uL (1.7-8.2); BASOPHILS % (AUTO) 2.3 % (0-2); EOSINOPHILS % (AUTO) 1.4 % (0-6); HEMATOCRIT 30.8 % (36.0-47.0); HEMOGLOBIN 10.3 g/dL (12.0-15.5); LYMPHOCYTES % (AUTO) 23.4 % (13-45); MEAN CORPUSCULAR HEMOGLOBIN 28.8 pg (27.0-33.4); MEAN CORPUSCULAR HGB CONC 33.4 g/dL (32.0-36.0); MEAN CORPUSCULAR VOLUME 86 fl (80-97); MONOCYTES % (AUTO) 6.9 % (3-13); PLATELET COUNT 437 10^3/uL (150-450); RED BLOOD COUNT 3.57 10^6/uL (3.72-5.28); RED CELL DISTRIBUTION WIDTH 14.5 % (11.5-14.0); TOTAL CELLS COUNTED % (AUTO) 100 %; WHITE BLOOD COUNT 7.7 10^3/uL (4.0-10.5)
[2017-08-20 10:17] LABS: ALANINE AMINOTRANSFERASE 31 U/L (9-52); ALBUMIN 3.8 g/dL (3.5-5.0); ALKALINE PHOSPHATASE 111 U/L (38-126); ANION GAP 12 (5-19); ASPARTATE AMINO TRANSFERASE 27 U/L (14-36); BILIRUBIN,DIRECT 0.4 mg/dL (0.0-0.4); BILIRUBIN,TOTAL 0.7 mg/dL (0.2-1.3); BLOOD UREA NITROGEN 23 mg/dL (7-20); CALCIUM 10.2 mg/dL (8.4-10.2); CARBON DIOXIDE 27 mmol/L (22-30); CHLORIDE 101 mmol/L (98-107); GLUCOSE 194 mg/dL (75-110); POTASSIUM 4.5 mmol/L (3.6-5.0); SODIUM 139.9 mmol/L (137-145); TOTAL PROTEIN 7.4 g/dL (6.3-8.2)
[2017-08-20 10:43] LABS: APPEARANCE,URINE SLIGHTLY-CLOUDY; BILIRUBIN,URINE NEGATIVE (NEGATIVE); COLOR,URINE YELLOW; GLUCOSE, URINE NEGATIVE (NEGATIVE); KETONES,URINE NEGATIVE (NEGATIVE); LEUKOCYTE ESTERASE,URINE SMALL (NEGATIVE); NITRITE,URINE NEGATIVE (NEGATIVE); PROTEIN,URINE 30 mg/dL (NEGATIVE); URINE SPECIFIC GRAVITY 1.017
[2017-08-20 10:54] LABS: URINE AMPHETAMINES SCREEN NEGATIVE; URINE BARBITURATES SCREEN NEGATIVE; URINE BENZODIAZEPINES SCREEN NEGATIVE; URINE COCAINE SCREEN NEGATIVE; URINE MARIJUANA (THC) SCREEN NEGATIVE; URINE METHADONE SCREEN NEGATIVE; URINE PHENCYCLIDINE SCREEN NEGATIVE
[2017-08-20] MEDS ORDERED: DIVALPROEX SODIUM 250 MG TAB.SR.24H PO ONE (11:36)
[2017-08-20] MEDS ORDERED: BUSPIRONE HCL 10 MG TABLET PO ONE (11:36)
--- NOTE | 2017-08-20 11:36 | ER Document Report ---
ED General - General Chief Complaint: Altered Mental Status Stated Complaint: PSYCH EVAL Time Seen by Provider: 08/20/17 08:54 TRAVEL OUTSIDE OF THE [place] IN LAST 30 DAYS: No - HPI Patient complains to provider of: Altered mental status Notes: Patient coming in for altered mental status. Patient was recently seen at the [facility] concern that the patient was still acting right and therefore patient was transported to [facility] for further evaluation. Upon my evaluation patient sleeping easily arousable patient smiling and very pleasant patient has no complaints denies any head pain chest pain abdominal pain fevers chills nausea vomiting diarrhea. Patient is confused and does have a history of significant dementia. senior living notes were reviewed apparently patient was being combative [facility] records were obtained and reviewed apparently requested nursing facility requests adjustment of medications because of the combative behavior. Otherwise HPI mostly reliant upon [facility] records [facility] - Related Data Allergies/Adverse Reactions: aspirin Allergy (Verified 08/20/17 08:50) Penicillins Allergy (Verified 08/20/17 08:50) Past Medical History - Social History Smoking Status: Unknown if Ever Smoked Family History: None Patient has suicidal ideation: No Patient has homicidal ideation: No - Past Medical History Cardiac Medical History: Reports: Hx Hypertension Denies: Hx Congestive Heart Failure, Hx DVT, Hx Heart Attack, Hx Hypercholesterolemia, Hx Pulmonary Embolism Pulmonary Medical History: Reports: Hx Bronchitis Denies: Hx Asthma, Hx COPD Neurological Medical History: Reports: Hx Migraine. Denies: Hx Seizures Endocrine Medical History: Reports: Hx Diabetes Mellitus Type 2. Denies: Hx Diabetes Mellitus Type 1, Hx Hyperthyroidism, Hx Hypothyroidism Renal/ Medical History: Denies: Hx Peritoneal Dialysis GI Medical History: Denies: Hx Cirrhosis, Hx Gastroesophageal Reflux Disease, Hx Hepatitis Musculoskeltal Medical History: Denies Hx Arthritis Psychiatric Medical History: Reports: Hx Dementia Denies: Hx Depression Infectious Medical History: Denies: Hx Hepatitis Past Surgical History: Reports: Hx Cardiac Catheterization - stents Review of Systems - Review of Systems Notes: Dementia -: Yes ROS unobtainable due to patient's medical condition - Dementia Physical Exam - Vital signs Vitals: Temp 97.9 F 08/20/17 08:35 Interpretation: Normal - General General appearance: Appears well, Alert - HEENT Head: Normocephalic, Atraumatic Eyes: Normal Pupils: PERRL - Respiratory Respiratory status: No respiratory distress Chest status: Nontender Breath sounds: Normal Chest palpation: Normal - Cardiovascular Rhythm: Regular Heart sounds: Normal auscultation Murmur: No - Abdominal Inspection: Normal Distension: No distension Bowel sounds: Normal Tenderness: Nontender Organomegaly: No organomegaly - Back Back: Normal, Nontender - Extremities General upper extremity: Normal inspection, Nontender, Normal color, Normal ROM , Normal temperature General lower extremity: Normal inspection, Nontender, Normal color, Normal ROM , Normal temperature, Normal weight bearing. No: Sami's sign - Neurological Neuro grossly intact: Yes Cognition: Confused K[place] Coma Scale Eye Opening: Spontaneous [place] Coma Scale Verbal: Oriented [place] Coma Scale Motor: Obeys Commands Kalyani Coma Scale Total: 15 Speech: Normal Motor strength normal: LUE, RUE, LLE, RLE Sensory: Normal - Psychological Associated symptoms: Normal affect, Normal mood - Skin Skin Temperature: Warm Skin Moisture: Dry Skin Color: Normal Course - Re-evaluation Re-evalutation: 08/20/17 16:15 Patient quite pleasant during her visit here we are able to feed patient at bedside patient's laboratory studies are no signs of infection requiring any antibiotic treatment at this time urine was sent for culture. No white count no fever chest x-ray is negative. Patient's medication list was reviewed by our psychiatric team recommended stop risperidone and Seroquel and to add Depakote and BuSpar. These were prescribed and left in the discharge papers for the [facility] facility. Patient was discharged back to her care center. - Vital Signs Vital signs: Temp Pulse Resp BP Pulse Ox 98.0 F 18 140/59 H 100 08/20/17 12:54 08/20/17 12:54 08/20/17 12:54 08/20/17 12:54 - Laboratory Result Diagrams: 08/20/17 09:49 08/20/17 09:49 Laboratory results interpreted by me: 08/20/17 08/20/17 08/20/17 09:49 09:49 09:52 RBC 3.57 L Hgb 10.3 L Hct 30.8 L RDW 14.5 H Basophils % 2.3 H BUN 23 H Est GFR ( Amer) 51 L Est GFR (Non-Af Amer) 42 L Glucose 194 H Urine Protein 30 H Urine Urobilinogen 2.0 H Ur Leukocyte Esterase SMALL H Discharge - Discharge Clinical Impression: Dementia Qualifiers: Dementia type: unspecified type Dementia behavioral disturbance: without behavioral disturbance Qualified Code(s): F03.90 - Unspecified dementia without behavioral disturbance Disposition: HOME, SELF-CARE Additional Instructions: Patient was evaluated today dementia possible altered mental status. Patient has been very delightful here in the ER smiling examination we were able to feed the patient breakfast. Laboratory studies not show any acute pathology concerning for infection. Urinalysis will be sent for culture. Head CT chest x-ray also negative for any acute findings. Medications were reviewed with our mental health team. Recommend: DC Quetiaine DC Risperidone Add: Depakote 250 mg bid Buspar 5mg qam Buspar 10mg qpm Please have the patient follow-up with her mental health and primary care provider. Patient can continue the rest of her medications. Prescriptions: Buspirone HCl [Buspar 10 mg Tablet] 10 mg PO QPM #14 tablet Buspirone HCl [Buspar 5 mg Tablet] 1 tab PO QAM #14 tab Divalproex Sodium [Depakote] 250 mg PO BID #28 tablet.
[2017-08-20 13:00] VITALS: BP 140/59
== END 2017-08-20 13:00 | disposition home or self-care (01) ==
LOC: ER 08:35
DX: F03.90 Unspecified dementia, unspecified severity, without behavioral disturbance, psychotic disturbance, mood disturbance, and anxiety (principal); R41.82 Altered mental status, unspecified; I10 Essential (primary) hypertension; E11.9 Type 2 diabetes mellitus without complications
CPT/HCPCS: 99285; 36415; 87086; 85025; 80053; 81001; 80307; 71046; 70450; A9270 ×2; J3490